=== PATIENT | male | born 1995 | race Caucasian/White ===

== ENCOUNTER 2023-12-21 13:31 | Emergency (ER) | payer BC, SELFPAY ==
[2023-12-21 13:32] VITALS: BP 130/82; PULSE 75; RESP 18; TEMP 36.6; O2SAT 98; BMI 21.7
--- NOTE | 2023-12-21 13:43 | RAD_ITS ---
STUDY: X-RAY CHEST REASON FOR EXAM: Male, 28 years old. Chest pain TECHNIQUE: Single AP portable view of the chest. COMPARISON: None. FINDINGS: The lungs are clear and expanded. There is no demonstrated pleural abnormality. Normal size heart. Normal mediastinum and mary beth. Normal visualized pulmonary arteries. Normal visualized aortic arch and descending thoracic aorta. Normal visualized thoracic spine. Normal visualized ribs, clavicles, and shoulders. There is no demonstrated abnormality of the visualized soft tissue structures of the upper abdomen. RAD/Chest 1 View (Portable) IMPRESSION: Normal x-ray examination of the chest. Electronically Signed: Brendon Desai MD at 14:14 EDT ,
--- NOTE | 2023-12-21 13:43 | EKG12_ITS ---
Test Reason : CP Blood Pressure : / mmHG Vent. Rate : 065 BPM Atrial Rate : 065 BPM P-R Int : 144 ms QRS Dur : 106 ms QT Int : 364 ms P-R-T Axes : 048 074 057 degrees QTc Int : 378 ms Normal sinus rhythm RSR' or QR pattern in V1 suggests right ventricular conduction delay Borderline ECG Confirmed by Nelson Mark ([id number]), loan expeditor PARMINDER BARBOSA ([id number]) on 12/23/2023 11:01:42 AM Referred By: EDPHYS Confirmed By:Nelson Mark
--- NOTE | 2023-12-21 13:46 | NURSING ---
NO OLD EKGS
[2023-12-21 13:47] VITALS: O2SAT 96
[2023-12-21 13:56] LABS: Absolute Lymphocyte Count 0.93 X10^3/uL (0.83-4.51); Absolute Neutrophil Count 5.3 X10^3/uL (2.0-7.7); Basophil# 0.02 X10^3/uL; Basophil% 0.3 % (0-1); Eosinophil# 0.01 X10^3/uL; Eosinophils% 0.1 % (0-5); Hemoglobin 16.1 g/dL (13.0-16.5); Lymphocyte # 0.93 X10^3/ul (0.83-4.51); Lymphocyte % 13.9 % (19-41); Mean Corp Hgb Conc 34.3 g/dL (32-36); Mean Corpuscular Volume 87.7 fL (80-94); Mean Platelet Vol. 10.3 fl (6.2-12.0); Monocyte# 0.44 X10^3/uL; Monocyte% 6.6 % (0-10); NRBC Flagged by Analyzer 0 % (0-5); Neutrophil # 5.26 X10^3/uL (2.7-7.7); Platelet Count 192 K/mm3 (150-450); RBC Distribution Width CV 12.7 % (11.6-14.6); RBC Distribution Width SD 40.8 fl (35.1-43.9); Red Blood Count 5.36 M/mm3 (4.6-6.2); White Blood Count 6.7 K/mm3 (4.4-11.0)
[2023-12-21 14:12] LABS: Anion Gap 6 (5-15); BUN 10 mg/dL (7-18); BUN/Creat Ratio 10.6 RATIO (10-20); Calcium,Total 9.8 mg/dL (8.5-10.1); Chloride 104 mmol/L (98-107); Creatinine, Serum 0.94 mg/dL (0.70-1.30); EST Glomerular Filtration Rate 101 mL/min (>60); Est Glom Filt Rate - Afr Amer 123 mL/min (>60); Estimated Creatinine Clearance 110.54 ml/min; Glucose 104 mg/dL (74-106); Potassium 3.4 mmol/L (3.5-5.1); Sodium Level 141 mmol/L (136-145); Troponin-I HS (w/2H Reflex) 5 pg/mL (3.0-78.0)
--- NOTE | 2023-12-21 14:31 | ED.VIS.CHEST ---
HPI History of Present Illness Chief Complaint: Chest Pain Informant: patient Onset/Context/Timing Onset: Today Narrative Narrative: Patient presents with a burning chest pain that started 8 AM this morning. He states symptoms seem to be improved after taking some aspirin and Tums, but did recur. He reports some mild shortness of breath. He does not feel otherwise ill. He denies personal or family history of heart disease. PFSH PFSH Medical History no medical history no medical history Home Medications omeprazole 40 mg capsule,delayed release 40 mg PO DAILY #30 caps 12/21/23 [Rx Last Taken Unknown] Allergy/AdvReac Type Severity Reaction Status Date / Time No Known Allergies Allergy Verified 12/21/23 13:31 Social History Smoking Status: Never smoker ROS ROS ED Constitutional Constitutional ED: Denies chills or fever(s) Eyes Eyes: Denies change in vision or discharge from eye(s) ENT ENT ED: Denies discharge from eye(s), rhinorrhea or sore throat Cardiovascular Cardiovascular: Reports chest pain; Denies palpitations Respiratory/Chest Respiratory/Chest: Reports dyspnea; Denies cough Gastrointestinal Gastrointestinal: Reports nausea; Denies abdominal pain, diarrhea or vomiting Genitourinary Genitourinary ED: Denies dysuria Musculoskeletal Musculoskeletal: Denies back pain or extremity pain Integumentary Denies Abrasions or rash Neurologic Neurologic: Denies headache(s) or weakness Allergic/Immunologic Allergic/Immunologic ED: Denies lip swelling or urticaria EXAM Physical Exam Const Vital Signs: 12/21/23 13:32 12/21/23 13:47 12/21/23 14:32 Temperature 97.8 F 98.1 F Temperature Source Temporal Temporal Pulse Rate 75 64 Respiratory Rate 18 16 Respiratory Effort Blood Pressure 130/82 H 117/81 H Blood Pressure Mean 98 93 Pulse Ox 98 96 97 Oxygen Delivery Method Room Air Room Air Room Air 12/21/23 15:00 12/21/23 15:58 12/21/23 16:00 Temperature 97.6 F L Temperature Source Oral Pulse Rate 62 68 Respiratory Rate 14 14 Respiratory Effort Normal Non-Labored Blood Pressure 113/91 H 119/79 Blood Pressure Mean 98 92 Pulse Ox 96 96 Oxygen Delivery Method Room Air Room Air Positive well nourished and well developed General Appearance ED: well developed HEENT Reports moist mucous membranes Eyes EOMs intact bilaterally Chest Wall inspection of chest normal and palpation of chest normal Resp normal respiratory effort and clear to auscultation bilaterally Cardio regular rate and regular rhythm GI soft to palpation and non-tender Extremity normal to inspection Neuro oriented x3 and no sensory deficits noted Motor Exam: strength 5/5 throughout Psych mental status grossly normal Skin no rashes or lesions noted MDM MDM MDM Narrative Medical decision making narrative: Patient did take aspirin prior to arrival. IV line initiated. Labwork obtained to evaluate for leukocytosis, anemia, and electrolyte derangement. EKG obtained to evaluate for cardiac arrhythmia/ischemia. Chest x-ray obtained to evaluate for acute lung pathology, cardiac size, or mediastinal abnormality. Patient be given IV Protonix and a GI cocktail to see if this improves his symptoms. History & Record Review Discussion w/independent historian: Patient Lab Data Labs: Laboratory Results - last 24 hr 12/21/23 12/21/23 13:35 16:03 WBC 6.7 RBC 5.36 Hgb 16.1 Hct 47.0 MCV 87.7 MCH 30.0 MCHC 34.3 RDW Std Deviation 40.8 RDW Coeff of Tirsten 12.7 Plt Count 192 MPV 10.3 Immature Gran % (Auto) 0.100 Neut % (Auto) 79.0 H Lymph % (Auto) 13.9 L Hall % (Auto) 6.6 Eos % (Auto) 0.1 Baso % (Auto) 0.3 Absolute Neuts (auto) 5.3 Absolute Lymphs (auto) 0.93 Nucleated RBC % 0 Sodium 141 Potassium 3.4 L Chloride 104 Carbon Dioxide 31.0 Anion Gap 6 BUN 10 Creatinine 0.94 Estim Creat Clear Calc 110.54 Est GFR (MDRD) Af Amer 123 Est GFR (MDRD) Non-Af 101 BUN/Creatinine Ratio 10.6 Glucose 104 Calcium 9.8 Troponin I High Sens 5 5 Radiography Chest X-Ray - ED: 1 View, Read by ED Physician, Normal, Heart, Lungs and Mediastinum Diagnostic Testing: Clinical Impression(s) from Imaging Studies Chest X-Ray 12/21/23 13:43 IMPRESSION: Normal x-ray examination of the chest. Electronically Signed: Brendon Desai MD at 14:14 EDT , EKG Initial EKG: Attestation: I personally reviewed and interpreted this EKG as follows: Interpretation: Sinus Rhythm (Sinus at 65 with no acute ischemia.) Treatment and Re-Evaluation :: CBC and chemistry studies remarkable only for slightly low potassium at 3.4. Initial troponin is 5 with a repeat troponin of 5. At the time of my exam patient is given Protonix as well as a GI cocktail. On repeat evaluation he states his pain is resolved. I will give him a prescription for omeprazole. Return instructions provided. Discharge Plan Triage Chief Complaint: Chest Pain ED Provider: Helen Nino Dx/Rx/DC Orders Clinical Impression: Gastroesophageal reflux disease, Chest pain Instructions: ED Chest Pain, Noncardiac, ED GERD (Adult) Prescriptions: New omeprazole 40 mg capsule,delayed release(DR/EC) 40 mg PO DAILY Qty: 30 0RF Primary Care Provider: Care Physician,No Primary Referrals: Mark Rausch MD [Med Staff - Criminal Analyst] - As Needed Care Physician,No Primary [Primary Care Provider] - Disposition Disposition: Home, Self Care
[2023-12-21 14:32] VITALS: BP 117/81; PULSE 64; RESP 16; TEMP 36.7; O2SAT 97
[2023-12-21] MEDS: Mag Hydrox/Al Hydrox/Simeth 30 ML UDC PO (14:36)
[2023-12-21 15:00] VITALS: BP 113/91; PULSE 62; RESP 14; O2SAT 96
[2023-12-21] MEDS: Pantoprazole Sodium 40 MG in 0.9% Normal Saline (100mL MB+) 100 ML 330 MG IV (15:14)
[2023-12-21 15:49] LABS: Reflex Troponin-HS? (from REC) Y
[2023-12-21 16:00] VITALS: BP 119/79; PULSE 68; RESP 14; TEMP 36.4; O2SAT 96
[2023-12-21 16:44] LABS: Troponin-I HS 5 pg/mL (3.0-78.0)
[2023-12-21 17:00] VITALS: BP 119/88; PULSE 62; PULSE 63; RESP 13; RESP 15; TEMP 37.1; O2SAT 98
== END 2023-12-21 17:12 | disposition home or self-care (01) ==
PROVIDERS: Emergency Provider Emergency Medicine; Visit Provider Emergency Medicine
DX: K21.9 Gastro-esophageal reflux disease without esophagitis (principal); R07.9 Chest pain, unspecified
CPT/HCPCS: 71045; 80048; 84484; 85025; 93005; 96365; 99285; A4216